=== PATIENT | male | born 2005 | race Caucasian/White ===

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

== ENCOUNTER 2023-08-12 18:22 | Emergency (ER) | payer OTHER, SELFPAY ==
[2023-08-12 20:05] VITALS: BP 127/94; PULSE 86; RESP 20; TEMP 36.8; O2SAT 99; BMI 19.9
--- NOTE | 2023-08-12 20:14 | ED_ITS ---
Discharge Plan Disposition Patient Disposition: Home, Self-Care Condition: Good Prescriptions Prescriptions: New doxycycline hyclate 100 mg capsule 100 mg PO BID 10 Days Qty: 20 0RF methylprednisolone [Medrol (Negro)] 4 mg tablets,dose pack See Rx Instructions .Route .COMPLEX 6 Days Qty: 21 0RF Rx Instructions: taper pack; [id number] [Bromfed DM] 2-30-10 mg/5 mL syrup 10 ml PO Q6H PRN (Reason: cold symptoms) Qty: 200 0RF guaifenesin [Mucinex] 600 mg tablet extended release 12hr 1,200 mg PO BID PRN (Reason: cough) Qty: 20 0RF albuterol sulfate [Proventil HFA] 90 mcg/actuation HFA aerosol inhaler 1 - 2 puff inhalation Q6H PRN (Reason: shortness of breath or wheezing) Qty: 8.5 0RF No Action trazodone 50 mg tablet See Rx Instructions .ROUTE .COMPLEX Qty: 30 5RF Dose Instruction: TAKE 1 TABLET BY MOUTH ONCE DAILY AT BEDTIME Rx Instructions: TAKE 1 TABLET BY MOUTH ONCE DAILY AT BEDTIME Referrals Follow up/Referrals: Salvador Manzano DO [Primary Care Provider] - See instructions Activity Restrictions/Add. Instructions Additional Instructions/Restrictions: * Start antibiotic today. Be sure to complete entire prescription even if feeling better * Monitor temp. Tylenol every 4 hours as needed and / or ibuprofen every 6 hours as needed ( As long as your primary care physician has told you that it ok to take both. For fever/aches/pains ER if no less than 101 despite Tylenol or Motrin * Humidifier/vaporizer or hot steamy shower * Inhaler every 4-6 hours as needed like we discussed. If unsure how to use it, ask pharmacist to demonstrate how. Should help open airways and improve cough, wheezing, and shortness of breath * Mucinex during the day for your cough and cough suppressant only at night. Be sure to drink lots of water. Insurance may not cover a prescriptions for mucinex. Might be cheaper to get 400mg tablets and take 2 tablet in the morning, mid-day and evening with lots of water. *Start steroid today. Helps with inflammation therefore, cough and wheezing. Follow directions on the package. Reviewed side effects. Patient reports taking them before. Follow up IMMEDIATELY for new or worsening of symptoms OR no noticeable improvement over the next 48-72 hours. 911 immediately for any life threatening symptoms such as chest pain or difficulty breathing Clinical Impressions Clinical Impression: Sinusitis, Bronchitis Stand Alone Forms Stand Alone Forms: Work/School Release Instructions Patient Instructions: Acute Bronchitis, DI for Sinusitis Discharge ED Provider: Maureen Sullivan [facility] HPI General Stated complaint: congestive , cough, pain in his lungs Mode of Arrival: Ambulatory Source of Information: Patient Limitations: No Limitations Time Seen by Provider: 08/12/23 20:14 Description of Symptoms (Recalled from Triage Doc. by RN): PATIENT C/O CONGESTION, COUGH, AND SINUS PRESSURE/PAIN X 2 WEEKS HEENT Symptoms (Recalled from RN notes): Yes Resp Symptoms (Recalled from RN notes): Yes Skin Symptoms (Recalled from RN notes): No MS Symptoms (Recalled from RN notes): No Functional Status (Recalled from RN notes): WNL History of Present Illness Provider Complaint: Patient states that he has been having sinus pain and pressure, drainage in the back of his throat and irritation in his throat with cough for several weeks States that he thought it would get better but it hasnt and he was worried if he didnt come in and get something he would end up with pneumonia when it wasnt clearing up Related Data Previous Rx's Medication Instructions Recorded trazodone 50 mg tablet See Rx Instructions .Route 07/22/22 .COMPLEX #30 tabs albuterol sulfate 90 mcg/actuation 1 - 2 puff inhalation Q6H PRN 08/12/23 aerosol inhaler (Proventil HFA) shortness of breath or wheezing #8.5 grams gjkftqpaubptolx-qscmcdytaarfbjt-YL 10 ml PO Q6H PRN cold symptoms 08/12/23 2 mg-30 mg-10 mg/5 mL oral syrup #200 mL (Bromfed DM) doxycycline hyclate 100 mg capsule 100 mg PO BID 10 days #20 caps 08/12/23 guaifenesin 600 mg tablet, 1,200 mg (2 x 600 mg) PO BID PRN 08/12/23 extended release 12 hr (Mucinex) cough #20 tabs methylprednisolone 4 mg tablets in See Rx Instructions .Route 08/12/23 a dose pack (Medrol (Negro)) .COMPLEX 6 days #21 tabs Allergies Allergy/AdvReac Type Severity Reaction Status Date / Time No Known Allergies Allergy Verified 07/22/22 14:59 Worker's Comp Is this a Worker's Comp case?: No [facility] Disclaimer: The information contained in this section may have been updated after the patient was seen, as this information can be updated by other users. Social History Smoking Status: Current every day smoker tobacco type: cigarettes packs per day: 1 second hand exposure: Yes alcohol intake: never current occupational status: other Travel in the last 8 weeks: None ROS Obtained: Yes All systems reviewed & no additional complaints except as documented and Yes Systems reviewed as appropriate & no additional complaints except as documented Constitutional Constitutional: Reports system reviewed and no additional complaints, except as documented, Reports as per HPI and Reports headache(s) ENT Ears, Nose, Mouth, and Throat: Reports system reviewed and no additional complaints, except as documented, Reports as per HPI, Reports headache(s), Reports sinus pain, Reports sinus pressure and Reports sore throat Cardiovascular Cardiovascular: Reports system reviewed and no additional complaints, except as documented and Reports as per HPI Respiratory Respiratory: Reports system reviewed and no additional complaints, except as documented, Reports as per HPI, Denies shortness of breath, Reports chest congestion, Reports cough, Reports pain with cough and Denies wheezing Gastrointestinal Gastrointestingal: Reports system reviewed and no additional complaints, except as documented and as per HPI Neurologic Neurologic: Reports headache(s) Allergic/Immunologic Allergic/Immunologic: Denies wheezing Physical Exam General General appearance: alert and in no apparent distress ENT ENT exam: Present mucous membranes moist Expanded ENT Exam Nose exam: Present sinus tenderness Throat exam: Present other (Pharyngeal erythema noted with PND) Respiratory Respiratory exam: Present normal lung sounds bilaterally; Absent respiratory distress or wheezes Cardiovascular Cardiovascular exam: Present regular rate, normal rhythm and normal heart sounds Neurological Exam Neurological exam: Present alert, oriented X3 and normal gait Medical Decision Making Jose Inquiry Pt receiving controlled substance: No Jose was queried for this patient: No Vital Signs: 08/12/23 20:05 Temperature 98.3 F Temperature Source Oral Pulse Rate [Left Brachial] 86 Respiratory Rate 20 Blood Pressure [Left Arm] 127/94 H Blood Pressure Mean [Left Arm] 105 Blood Pressure Source [Left Arm] Automatic Cuff Blood Pressure Position [Left Arm] Sitting 02 Sat by Pulse Oximetry 99 Oxygen Delivery Method Room Air Medical Decision Narrative: discussed CXR patient concerned with insurance coverage
[2023-08-12 20:18] VITALS: BP 127/94; PULSE 86; RESP 20; TEMP 36.8; O2SAT 99
[2023-08-12] MEDS: predniSONE 20MG TAB 20 MG PO (20:33)
[2023-08-12] MEDS: DOXYCYCLINE HYCL 100 MG TABLET PO (20:34)
== END 2023-08-12 20:34 | disposition home or self-care (01) ==
PROVIDERS: Emergency Provider Nurse Practitioner; PCP Internal Medicine
DX: J20.9 Acute bronchitis, unspecified (principal); J01.90 Acute sinusitis, unspecified; R09.82 Postnasal drip; R09.81 Nasal congestion; R05.9 Cough, unspecified; F17.210 Nicotine dependence, cigarettes, uncomplicated
CPT/HCPCS: 99212; 99214; G0463

== ENCOUNTER 2023-08-23 08:00 | Emergency (ER) | payer OTHER, SELFPAY ==
[2023-08-23 08:05] VITALS: BP 128/62; PULSE 63; RESP 23; TEMP 36.8; O2SAT 96; BMI 19.5
--- NOTE | 2023-08-23 08:15 | XR_ITS ---
PROCEDURE INFORMATION: Exam: XR Chest Exam date and time: 08/23/2023 8:31 AM Age: 17 years old Clinical indication: Cough; Additional info: Cough, trouble breathing. Bronchitis and sinus infection for 10 days. Former smoker for 3 yrs TECHNIQUE: Imaging protocol: Radiologic exam of the chest. Views: 2 views. COMPARISON: CT CERVICAL SPINE WO CON 03/12/2021 10:39 PM FINDINGS: Lungs: Unremarkable. No consolidation. Pleural spaces: Unremarkable. No pleural effusion. No pneumothorax. Heart/Mediastinum: Unremarkable. No cardiomegaly. Bones/joints: Unremarkable. IMPRESSION: No acute findings.
--- NOTE | 2023-08-23 08:16 | ED_ITS ---
Discharge Plan Disposition Patient Disposition: Home, Self-Care Condition: Good Prescriptions Prescriptions: New dextromethorphan-guaifenesin [Robitussin Cough-Chest Vinny DM] 5-100 mg/5 mL liquid 10 ml PO Q8H PRN (Reason: cough) Qty: 118 0RF azithromycin [Zithromax Z-Negro] 250 mg tablet See Rx Instructions .ROUTE .COMPLEX 5 Days Qty: 6 0RF Rx Instructions: For 250 mg dose pack: take 500 mg today (day 1), then 250 mg for 4 days (days 2-5) No Action trazodone 50 mg tablet See Rx Instructions .ROUTE .COMPLEX Qty: 30 5RF Dose Instruction: TAKE 1 TABLET BY MOUTH ONCE DAILY AT BEDTIME Rx Instructions: TAKE 1 TABLET BY MOUTH ONCE DAILY AT BEDTIME albuterol sulfate [Proventil HFA] 90 mcg/actuation HFA aerosol inhaler 1 - 2 puff inhalation Q6H PRN (Reason: shortness of breath or wheezing) Qty: 8.5 0RF Referrals Follow up/Referrals: Provider,Referral, MD [Primary Care Provider] - See instructions Activity Restrictions/Add. Instructions Additional Instructions/Restrictions: *Monitor Temp, Over the counter Motrin or Tylenol as directed/as needed Tylenol every 4 hours and Motrin every 6 hours (as long as your family doctor has told you that you can take it) for fever or pain. and straight to ER if unable to lower temp less than 101.0 after medication given *Warm salt water gargles may help to soothe the throat and help with cough *Throat Lozenges? *Warm fluids like tea with honey may help to soothe the throat?and help with cough? *Sleep elevated *Humidifier/Vaporizer Follow up IMMEDIATELY for new or worsening symptoms or no Noticeable improv ement over the next 48-72 hours. 911 for difficulty breathing or swallowing Clinical Impressions Clinical Impression: Cough Qualifiers: Cough type: unspecified Qualified Code(s): R05.9 - Cough, unspecified Instructions Patient Instructions: Cough Discharge ED Provider: Maureen Sullivan [facility] General Stated complaint: cough, lung pain, vomiting, soa Mode of Arrival: Ambulatory Source of Information: Patient Limitations: No Limitations Time Seen by Provider: 08/23/23 08:16 Description of Symptoms (Recalled from Triage Doc. by RN): PATIENT C/O BAD/HARD COUGHING SPELLS THAT CAUSE VOMITING AND TROUBLE BREATHING HEENT Symptoms (Recalled from RN notes): No Resp Symptoms (Recalled from RN notes): Yes Skin Symptoms (Recalled from RN notes): No MS Symptoms (Recalled from RN notes): No Functional Status (Recalled from RN notes): WNL History of Present Illness Provider Complaint: Patient states that around the first part of the month he had sinus pain and pressure and bad cough and was treated and his sinuses has got better and no longer having any of that but his cough has continued and he feels like he has congestion in his chest and a bad cough still States that he doesnt feel bad but still feels like he has congestion in his chest and worried about pneumonia States at times he coughs so much and hard that it makes him vomit and feel SOA So today when he was still having a bad cough and chest congestion he came in to get checked Related Data Previous Rx's Medication Instructions Recorded trazodone 50 mg tablet See Rx Instructions .Route 07/22/22 .COMPLEX #30 tabs albuterol sulfate 90 mcg/actuation 1 - 2 puff inhalation Q6H PRN 08/12/23 aerosol inhaler (Proventil HFA) shortness of breath or wheezing #8.5 grams azithromycin 250 mg tablet See Rx Instructions PO .COMPLEX 5 08/23/23 (Zithromax Z-Negro) days #6 tabs dextromethorphan-guaifenesin 5 10 ml PO Q8H PRN cough #118 mL 08/23/23 mg-100 mg/5 mL oral liquid (Robitussin Cough-Chest Congestion DM) Allergies Allergy/AdvReac Type Severity Reaction Status Date / Time No Known Allergies Allergy Verified 07/22/22 14:59 Worker's Comp Is this a Worker's Comp case?: No [facility] Disclaimer: The information contained in this section may have been updated after the p atient was seen, as this information can be updated by other users. Social History Smoking Status: Current every day smoker tobacco type: cigarettes packs per day: 1 second hand exposure: Yes alcohol intake: never current occupational status: other Travel in the last 8 weeks: None ROS Obtained: Yes All systems reviewed & no additional complaints except as documented and Yes Systems reviewed as appropriate & no additional complaints except as documented Constitutional Constitutional: Reports system reviewed and no additional complaints, except as documented and Reports as per HPI ENT Ears, Nose, Mouth, and Throat: Reports system reviewed and no additional complaints, except as documented and Reports as per HPI Cardiovascular Cardiovascular: Reports system reviewed and no additional complaints, except as documented and Reports as per HPI Respiratory Respiratory: Reports system reviewed and no additional complaints, except as documented, Reports as per HPI, Reports shortness of breath, Reports chest congestion and Reports cough Gastrointestinal Gastrointestingal: Reports system reviewed and no additional complaints, except as documented, as per HPI and vomiting Physical Exam General General appearance: alert and in no apparent distress ENT ENT exam: Present mucous membranes moist Chest Chest inspection: Present normal inspection and symmetric chest wall rise Respiratory Respiratory exam: Present normal lung sounds bilaterally and other (rhonchi noted that clears with cough); Absent respiratory distress Cardiovascular Cardiovascular exam: Present regular rate, normal rhythm and normal heart sounds Neurological Exam Neurological exam: Present alert, oriented X3 and normal gait Medical Decision Making Jose Inquiry Pt receiving controlled substance: No Jose was queried for this patient: No Vital Signs: 08/23/23 08:05 Temperature 98.2 F Temperature Source Oral Pulse Rate [Left Brachial] 63 Respiratory Rate 23 Blood Pressure [Left Arm] 128/62 Blood Pressure Mean [Left Arm] 84 Blood Pressure Source [Left Arm] Automatic Cuff Blood Pressure Position [Left Arm] Sitting 02 Sat by Pulse Oximetry 96 Oxygen Delivery Method Room Air Orders (Tests/Meds): ORDERS Category Date Time Status Chest XR 2 view (NOT portable) [XR chest 2V] Stat Exams 08/23/23 08:15 Ordered Radiology Data #1: Image(s): Chest Image Reviewed: Yes I have reviewed radiologist's interpretation IMPRESSION: No acute findings.
[2023-08-23 10:10] VITALS: BP 128/62; PULSE 63; RESP 23; TEMP 36.8; O2SAT 96
== END 2023-08-23 10:14 | disposition home or self-care (01) ==
PROVIDERS: Emergency Provider Nurse Practitioner
DX: R05.8 Other specified cough (principal); R11.10 Vomiting, unspecified; R06.02 Shortness of breath; R07.81 Pleurodynia; F17.210 Nicotine dependence, cigarettes, uncomplicated
CPT/HCPCS: 71046; 99212; 99214; G0463